=== PATIENT | female | born 1995 | race African-American/Black ===

== ENCOUNTER 2017-06-07 15:43 | Outpatient (CLI) | payer MEDICAID ==
[2017-06-07 16:32] LABS: APPEARANCE,URINE SLIGHTLY-CLOUDY; BILIRUBIN,URINE NEGATIVE (NEGATIVE); GLUCOSE, URINE NEGATIVE (NEGATIVE); KETONES,URINE NEGATIVE (NEGATIVE); LEUKOCYTE ESTERASE,URINE TRACE (NEGATIVE); NITRITE,URINE NEGATIVE (NEGATIVE); PROTEIN,URINE 30 mg/dL (NEGATIVE); URINE SPECIFIC GRAVITY 1.016
[2017-06-07 16:32] LABS: AMNISURE (ROM) NEGATIVE (NEGATIVE)
[2017-06-07] MEDS ORDERED: RINGERS SOLUTION,LACTATED 1,000 ML IV PRN (16:35)
[2017-06-07 16:47] LABS: URINE BARBITURATES SCREEN NEGATIVE; URINE METHADONE SCREEN NEGATIVE; URINE OPIATES LOW NEGATIVE; URINE PHENCYCLIDINE SCREEN NEGATIVE
[2017-06-07 17:07] LABS: APPEARANCE,URINE SLIGHTLY-CLOUDY; BILIRUBIN,URINE NEGATIVE (NEGATIVE); GLUCOSE, URINE NEGATIVE (NEGATIVE); KETONES,URINE NEGATIVE (NEGATIVE); LEUKOCYTE ESTERASE,URINE TRACE (NEGATIVE); NITRITE,URINE NEGATIVE (NEGATIVE); URINE SPECIFIC GRAVITY 1.016
[2017-06-07 17:12] LABS: ABSOLUTE EOSINOPHILS # (AUTO) 0.1 10^3/uL (0.0-0.6); ABSOLUTE LYMPHOCYTES (AUTO) 1.4 10^3/uL (0.5-4.7); ABSOLUTE MONOCYTES (AUTO) 0.9 10^3/uL (0.1-1.4); ABSOLUTE NEUT (AUTO) 6.5 10^3/uL (1.7-8.2); BASOPHILS % (AUTO) 0.2 % (0-2); EOSINOPHILS % (AUTO) 0.6 % (0-6); HEMATOCRIT 36.3 % (36.0-47.0); HEMOGLOBIN 12.3 g/dL (12.0-15.5); HGB HCT DIFFERENCE 0.6; MEAN CORPUSCULAR HEMOGLOBIN 27.1 pg (27.0-33.4); MEAN CORPUSCULAR VOLUME 80 fl (80-97); MONOCYTES % (AUTO) 10.2 % (3-13); RED BLOOD COUNT 4.55 10^6/uL (3.72-5.28); RED CELL DISTRIBUTION WIDTH 14.6 % (11.5-14.0)
[2017-06-07 17:15] LABS: URINE CREATININE 202.2 mg/dL (16-327); URINE PROTEIN 5.7 mg/dL (<12)
[2017-06-07 17:20] LABS: PROTEIN,URINE 30 mg/dL (NEGATIVE)
[2017-06-07 17:28] LABS: ALANINE AMINOTRANSFERASE 28 U/L (9-52); ALBUMIN 3.4 g/dL (3.5-5.0); ALKALINE PHOSPHATASE 184 U/L (38-126); ANION GAP 10 (5-19); ASPARTATE AMINO TRANSFERASE 14 U/L (14-36); BILIRUBIN,DIRECT 0.1 mg/dL (0.0-0.4); BILIRUBIN,TOTAL 0.3 mg/dL (0.2-1.3); BLOOD UREA NITROGEN 6 mg/dL (7-20); CARBON DIOXIDE 23 mmol/L (22-30); CHLORIDE 106 mmol/L (98-107); CREATININE RESULT 0.61 mg/dL (0.52-1.25); GLUCOSE 78 mg/dL (75-110); LDH 406 U/L (313-618); SODIUM 139.2 mmol/L (137-145); TOTAL PROTEIN 6.2 g/dL (6.3-8.2); URIC ACID 4.8 mg/dL (2.5-6.2)
[2017-06-07] MEDS ORDERED: HYDROXYZINE PAMOATE 50 MG CAPSULE PO ONE (18:03)
[2017-06-07] MEDS ORDERED: HYDROXYZINE PAMOATE 50 MG CAPSULE ONE (18:07)
--- NOTE | 2017-06-07 18:24 | Non Stress Test Report ---
Non Stress Test Datetime Report Generated by CPN: 06/07/2017 18:23 DEMOGRAPHIC EGA NST: 40.4 INDICATION Indication for Study: Ordered by Provider Indication for Study (NST) Other: lc MONITORING Monitor Explained: Monitor Explained; Test Explained; Patient Verbalized Understanding Time on Monitor: 06/07/2017 16:30 Time off Monitor: 06/07/2017 17:51 NST Duration: 81 NST INTERVENTIONS NST Interventions: PO Hydration; IV Fluids; Reposition Patient Physician Notified NST: Dr Greene BABY A: [id number] BABY A Movement : Present Contraction Frequency : 3-5 FHR Baseline : 135 Accelerations : 15X15 Decelerations : None Variability : Moderate 6-25bpm NST Review: Meets Criteria for Reactive NST NST Review and Verified By : ISABEL Baeza Results: Reactive NST REPORT Report Trigger: Send Report
== END 2017-06-07 18:18 | disposition home or self-care (01) ==
LOC: LC 15:43
PROVIDERS: ATTEND Obstetrics & Gynecology
DX: O48.0 Post-term pregnancy (principal); Z3A.40 40 weeks gestation of pregnancy
CPT/HCPCS: 59025; 94760; 96372; 84112; 36415; 83615; 84156; 84550; 82570; 85025; 81005; 80053; 81001; 80307; J3490

== ENCOUNTER 2017-06-07 22:24 | Inpatient (IN) | payer MEDICAID ==
[2017-06-07] MEDS ORDERED: OXYTOCIN 10 UNIT/ML VIAL ONE (22:31)
[2017-06-07] MEDS ORDERED: LIDOCAINE 1% INJ-PF (10 MG/ML) 30 ML SDV ONE ×2 (22:31→22:38)
[2017-06-07] MEDS ORDERED: MISOPROSTOL 0.2 MG TABLET ONE ×2 (22:31→22:38)
[2017-06-07] MEDS ORDERED: OXYTOCIN/NORMAL SALINE 0 UNIT/0 ML RTUINJ ONE (22:31)
[2017-06-07] MEDS ORDERED: PENICILLIN G-K 5 MILLION UNIT VIAL ONE (22:38)
[2017-06-07] MEDS ORDERED: OXYTOCIN/NORMAL SALINE 20 UNIT/1,000 ML RTUINJ ONE (22:38)
[2017-06-07] MEDS ORDERED: RINGERS SOLUTION,LACTATED 1,000 ML IV ONE (22:48)
[2017-06-07] MEDS ORDERED: RINGERS SOLUTION,LACTATED 1,000 ML IV PRN ×2 (22:48→23:59)
[2017-06-07] MEDS ORDERED: PENICILLIN G POTASSIUM 5,000,000 UNIT in DEXTROSE 5%-WATER 100 ML IV ONE (22:48)
[2017-06-07 22:59] LABS: ABSOLUTE EOSINOPHILS # (AUTO) 0.1 10^3/uL (0.0-0.6); ABSOLUTE LYMPHOCYTES (AUTO) 1.8 10^3/uL (0.5-4.7); ABSOLUTE MONOCYTES (AUTO) 0.8 10^3/uL (0.1-1.4); ABSOLUTE NEUT (AUTO) 7.4 10^3/uL (1.7-8.2); BASOPHILS % (AUTO) 0.2 % (0-2); EOSINOPHILS % (AUTO) 0.6 % (0-6); HEMATOCRIT 38.5 % (36.0-47.0); HGB HCT DIFFERENCE 0.5; LYMPHOCYTES % (AUTO) 18.1 % (13-45); MEAN CORPUSCULAR HGB CONC 33.9 g/dL (32.0-36.0); MEAN CORPUSCULAR VOLUME 80 fl (80-97); MONOCYTES % (AUTO) 8.1 % (3-13); RED BLOOD COUNT 4.82 10^6/uL (3.72-5.28); RED CELL DISTRIBUTION WIDTH 14.9 % (11.5-14.0); WHITE BLOOD COUNT 10.2 10^3/uL (4.0-10.5)
[2017-06-07] MEDS ORDERED: PENICILLIN G-K 5 MILLION UNIT VIAL IV PRN (23:18)
[2017-06-07] MEDS ORDERED: CEFAZOLIN 2 GM/D5W RTU 2 GM/50 ML RTUPB IV ONE (23:57)
[2017-06-07] MEDS ORDERED: CITRIC ACID/SODIUM CITRATE ORAL SOLN 15 ML UDCUP ONE (23:57)
[2017-06-07] MEDS ORDERED: OXYTOCIN/NORMAL SALINE 20 UNIT/1,000 ML RTUINJ IV PRN (23:59)
[2017-06-07] MEDS ORDERED: DIPH/PERTUSS(ACELL)/TETANUS VAC/PF 0.5 ML SYR (>=10YO) IM PRN (23:59)
[2017-06-07] MEDS ORDERED: OXYCODONE-ACETAMINOPHEN 5-325 MG TABLET PO PRN ×2 (23:59)
[2017-06-07] MEDS ORDERED: ACETAMINOPHEN 325 MG TABLET PO PRN (23:59)
[2017-06-07] MEDS ORDERED: SIMETHICONE 80 MG TAB.CHEW PO PRN (23:59)
[2017-06-07] MEDS ORDERED: PROMETHAZINE HCL INJ 25 MG/1 ML VIAL IV PRN (23:59)
[2017-06-07] MEDS ORDERED: MEASLES,MUMPS&RUBELLA VACC/PF 0.5 ML VIAL SUBCUT PRN (23:59)
[2017-06-08] MEDS ORDERED: IBUPROFEN 800 MG TABLET PO SCH
[2017-06-08] MEDS ORDERED: EPHEDRINE SULFATE INJ 50 MG/1 ML AMPULE ONE (00:14)
[2017-06-08] MEDS ORDERED: OXYTOCIN 10 UNIT/ML VIAL ONE (00:14)
[2017-06-08] MEDS ORDERED: OXYTOCIN/NORMAL SALINE 0 UNIT/0 ML RTUINJ ONE (00:14)
[2017-06-08] MEDS ORDERED: FENTANYL CITRATE INJ/PF 100 MCG/2 ML AMPUL ONE ×2 (00:14→02:32)
[2017-06-08] MEDS ORDERED: MIDAZOLAM 2 MG/2 ML INJ ONE (00:15)
[2017-06-08] MEDS ORDERED: PROMETHAZINE HCL INJ 25 MG/1 ML VIAL IV PRN ×2 (00:47)
[2017-06-08] MEDS ORDERED: FENTANYL CITRATE INJ/PF 100 MCG/2 ML AMPUL IV PRN ×3 (00:47)
[2017-06-08] MEDS ORDERED: MORPHINE SULFATE 10 MG/ML INJ IV PRN (00:47)
[2017-06-08] MEDS ORDERED: DIPHENHYDRAMINE HCL 50 MG/ML VIAL IV PRN (00:47)
[2017-06-08] MEDS ORDERED: ONDANSETRON HCL INJ/PF 4 MG/2 ML SDV IV PRN (00:47)
[2017-06-08] MEDS ORDERED: MEPERIDINE HCL/PF INJ 25 MG/1 ML DISP.SYRIN IV PRN (00:47)
--- NOTE | 2017-06-08 01:17 | Operative Report ---
Operative Report DATE OF SURGERY: 06/08/17 PREOPERATIVE DIAGNOSIS: Nonreassuring tracing multiple decelerations moderate meconium direct OP presentation with arrest of descent POSTOPERATIVE DIAGNOSIS: Same OPERATION: Primary via low transverse uterine incision and bilateral tubal ligation with Filshie clips SURGEON: SADAF HAYWOOD ANESTHESIA: Spinal TISSUE REMOVED OR ALTERED: Placenta COMPLICATIONS: None ESTIMATED BLOOD LOSS: 250 cc INTRAOPERATIVE FINDINGS: Viable male Apgars 7 and 9 moderate meconium directly OP PROCEDURE: Patient was taken to the OR and placed in supine position after her spinal anesthesia. She is prepared and draped in sterile fashion. Dodge was placed for drainage of the bladder. Low transverse incision was made and carried down the level of the fascia. The fascial incision was made with knife and extended bilaterally with curved Liang scissors. The fascia was off the rectus muscles using sharp and blunt dissection. The rectus muscles are in the midline. The peritoneum was entered without incident. Bladder blade was placed in uterine segment was identified. A low transverse incision was made creating a bladder flap. Bladder blade was placed low transverse uterine incision was made with the csafe knife and extended with fingertips. The baby was delivered with some fundal pressure. Mouth and nose were suctioned free. The cord is doubly clamped and cut. Baby is passed off to the invoice control clerk in attendance. The placenta was manually extracted with trailing membranes. The uterus was externalized wrapped in a moist lap sponge. Uterine contents wiped free. Uterus was closed with a running locking layer of 0 chromic suture using the second layer to imbricate the first completing a double layer closure of the uterus. The serosa was closed with a running 2-0 chromic stitch. Filshie clips were placed across each tube at the mid isthmic portion bilaterally. The pelvis was irrigated and suctioned free of fluid the uterus was replaced in the abdomen. The abdominal wall peritoneum was closed with running 2-0 chromic stitch. Fascia was closed with a running 0 Vicryl in 2 segments. Jazzmine's layer was brought together with 0 plain gut stitch and the skin was closed with running subcuticular 4-0 undyed Vicryl stitch. The wound was dressed mother and baby did well.
[2017-06-08] MEDS ORDERED: ACETAMINOPHEN 100 ML IV ONE (01:21)
--- NOTE | 2017-06-08 02:30 | Delivery Summary ---
Del Sum A-C Datetime Report Generated by CPN: 06/08/2017 02:30 DELIVERY PERSONNEL DELIVERY PERSONNEL: [id number] Delivery Doctor:: Gaurav Greene MD Anesthesiologist:: Yassine Bahena MD COLLECTION SYSTEMS CONSULTANT:: Ping Conde CRNA Labor and Delivery Nurse:: Hedy Delgado RN Neonatal Nurse Practitioner:: CARLINE Zaragoza Nursery Nurse:: Mayte Akers RN Auto Brake Technician/ROD DRAWER: [facility] Auto Brake Technician/ROD DRAWER: [facility] Additional Personnel: : Kris Kerns ROD DRAWER MATERNAL INFORMATION Delivery Anesthesia: Spinal Medications After Delivery: Pitocin Drip 20 Units/1000ml NSS Estimated Blood Loss (ml): 600 Maternal Complications: None LABOR SUMMARY EDC: 06/03/2017 00:00 No. Babies in Womb: 1 Attempted: No Labor Anesthesia: None LABOR INFORMATION Reason for Induction: Not Applicable Onset of Labor: 06/07/2017 22:31 Oxytocin: N/A Group B Beta Strep: Unknown Antibiotics # of Doses: 1 Antibiotics Time of Last Dose: 2240 Name of Antibiotic Given: penicillin Steroids Given: None Reason Steroids Not Administered: Not Applicable MEMBRANES Membranes Rupture Method: Spontaneous Rupture of Membranes: 06/07/2017 22:31 Length of Rupture (hr): 2.13 Amniotic Fluid Color: Moderate Meconium Amniotic Fluid Amount: Moderate Amniotic Fluid Odor: Normal STAGES OF LABOR Stage 3 hr: 0 Stage 3 min: 0 Total Time in Labor hr: 2 Total Time in Labor min: 8 VAGINAL DELIVERY Episiotomy: None Laceration #1: None Laceration Extension #1: N/A Laceration Repair: Not Applicable Sponge Count Correct: Yes Sharps Count Correct: Yes CSECTION DELIVERY Primary Indication: Nonreassuring Status Secondary Indication: N/A CSection Urgency: Emergency CSection Incidence: Primary Labor: Labor Elective: Nonelective CSection Incision: Lower Uterine Transverse BABY A INFORMATION Delivery Date/Time: 06/08/2017 00:39 Method of Delivery: Born in Route : No : N/A Forceps: N/A Vacuum Extraction: N/A Shoulder Dystocia : No PRESENTATION/POSITION BABY A Presentation: Cephalic Cephalic Presentation: Vertex Vertex Position: OP Breech Presentation: N/A PLACENTA INFORMATION BABY A Placenta Delivery Time : 06/08/2017 00:39 Placenta Method of Delivery: Spontaneous Placenta Status: Delivered SCORES BABY A Heart Rate 1 min: >100 bpm Resp Effort 1 min: Good Cry Reflex Irritability 1 min: Grimace Muscle Tone 1 min: Some Flexion of Extremities Color 1 min: Body [place], Extremities Blue SCORE 1 MIN: 7 Heart Rate 5 min: >100 bpm Resp Effort 5 min: Good Cry Reflex Irritability 5 min: Cough or Sneeze or Pulls Away Muscle Tone 5 min: Active Motion Color 5 min: Body [place], Extremities Blue SCORE 5 MIN: 9 INFANT INFORMATION BABY A Gestational Age at Delivery: 40.5 Gestational Status: Full Term- 39- 40.6 Weeks Outcome : Liveborn Condition : Stable Infant Sex: Male WEIGHT/LENGTH BABY A Infant Birthweight (gm): 3775 Weight (lb): 8 Weight (oz): 5 Length (in): 19.75 Infant Length (cm): 50.17 CORD INFORMATION BABY A No. Cord Vessels: 3 Nuchal Cord : N/A Cord Blood Taken: Yes-For Storage (Mom's Blood type +) Infant Suction: Mouth; Nose ASSESSMENT BABY A Transferred To: Nursery BABY B INFORMATION : N/A
[2017-06-08] MEDS ORDERED: PENICILLIN G POTASSIUM 2,500,000 UNIT in DEXTROSE 5%-WATER 50 ML IV SCH (02:49)
--- NOTE | 2017-06-08 03:26 | Admission Physical ---
Datetime Report Generated by CPN: 06/08/2017 03:25 CURRENT ADMISSION Chief Complaint: Uterine Contractions Indication for Induction: Not Applicable Indication for Induction: Term, Intrauterine ; Active Labor Admit Plan: Admit to Unit; Initiate Labor Protocol ALLERGIES Medication Allergies: No Medication Allergies: No Known Allergies (06/07/2017) Latex: No Latex Allergies Food Allergies: none Environmental Allergies: none OBSTETRICAL HISTORY EDC: 06/03/2017 00:00 : 2 Para: 1 Term: 1 : 0 SAB: 0 IAB: 0 Ectopic: 0 Livin Cesareans: 0 VBACs: 0 Multiple Births: 0 Gestational Diabetes: Yes Rh Sensitization: No Incompetent Cervix: No JERI: No Infertility: No ART Treatment: No Uterine Anomaly: No IUGR: No Hx Previous C/S: No Macrosomia: Unknown Hx Loss/Stillborn: No PIH: No Hx : No Placenta Previa/Abruption: No Depression/PP Depression: No PTL/PROM: No Post Hemorrhage: No Current Procedures: Ultrasound; NST Obstetrical History Comments: G1- 2014 term baby girl G2- current , GDM SEE RECORDS Alcohol: No Marijuana : No Cocaine: No Other Illicit Drugs: No Cigarettes: Former Smoker. [id number] Cigarette Comments: quit when pt found out she was MEDICAL HISTORY Diabetes Type: Gestational Diabetes Blood Transfusion: No Pulmonary Disease (Asthma, TB): No Breast Disease: No Hypertension: No Litigation Legal Secretary Surgery: No Heart Disease: No Hosp/Surgery: Yes Autoimmune Disorder: No Anesthetic Complications: No Kidney Disease: No Abnormal Pap Smear: No Neuro/Epilepsy: No Psychiatric Disorders: No Other Medical Diseases: No Hepatitis/Liver Disease: No Significant Family History: No Varicosities/Phlebitis: No Trauma/Violence : No Thyroid Dysfunction: No Medical History Comments: GDM this INFECTIOUS HISTORY Gonorrhea: No Genital Herpes: No Chlamydia: No Tuberculosis: No Syphilis: No Hepatitis: No HIV/AIDS Exposure: No Rash or Viral Illness: No HPV: No PHYSICAL EXAM General: Normal HEENT: Normal Neurologic: Normal Thyroid: Normal Heart: Normal Lungs: Normal Breast: Deferred Back: Normal Abdomen: Normal Genitourinary Exam: Normal Extremities: Normal DTRs: Normal Pelvic Type: Adequate VAGINAL EXAM Dilatation: 9 Effacement: 100 Station: 0 MEMBRANES Pooling: Positive Membranes: Ruptured Amniotic Fluid Color: Meconium, Heavy FETUS A EGA: 40.4 FHR- Baseline: 150 Variability: Minimal - Undetectable to <=5bpm Accelerations: 15X15 Decelerations: Variable FHR Category: Category II Presentation: Vertex Admit Comment: EFW 9lbs and meconium. Now appears to have stopped at 9cm PLANS FOR LABOR AND DELIVERY Labor and Delivery: None Pain Management: Epidural Feeding Preference: Both Benefit of Breast Feed Discussed: Yes Circumcision: Yes INFORMED CONSENT Signature: with User ID: [email or web address]
[2017-06-08] MEDS: KETOROLAC TROMETHAMINE INJ/PF 30 MG/1 ML SDV IV SCH ×3 (04:29→17:02)
[2017-06-08] MEDS: HYDROMORPHONE HCL INJ/PF 2 MG/ML AMPULE IV PRN ×2 (04:29→13:36)
[2017-06-08 07:02] LABS: HEMOGLOBIN 12.1 g/dL (12.0-15.5); HGB HCT DIFFERENCE 0.3; MEAN CORPUSCULAR HEMOGLOBIN 26.7 pg (27.0-33.4); MEAN CORPUSCULAR HGB CONC 33.6 g/dL (32.0-36.0); MEAN CORPUSCULAR VOLUME 80 fl (80-97); RED BLOOD COUNT 4.52 10^6/uL (3.72-5.28); RED CELL DISTRIBUTION WIDTH 14.8 % (11.5-14.0)
[2017-06-08] MEDS ORDERED: KETOROLAC TROMETHAMINE 60 MG/2 ML SDV ONE (07:51)
[2017-06-08] MEDS ORDERED: METOCLOPRAMIDE HCL INJ/PF 10 MG/2 ML SDV ONE (07:51)
[2017-06-08] MEDS ORDERED: DEXAMETHASONE SOD PHOSPHATE INJ 4 MG/1 ML VIAL ONE (07:51)
[2017-06-08] MEDS ORDERED: PHENYLEPHRINE HCL INJ/PF 10 MG/1 ML SDV ONE (07:51)
[2017-06-08] MEDS ORDERED: ONDANSETRON HCL INJ/PF 4 MG/2 ML SDV ONE (07:51)
[2017-06-08] MEDS: DOCUSATE SODIUM 100 MG CAPSULE PO SCH ×2 (09:06→17:02)
[2017-06-08] MEDS: PRENATAL VITAMIN W DHA CAPSULE PO SCH (09:06)
--- NOTE | 2017-06-08 11:39 | PDOC PROGRESS REPORT ---
Subjective-OB Subjective: Post Delivery Day:1 22 year old G2 now P2 s/p primary 10hrs pp. Passing gas, andersen still in placed for 2 more hours, output very reassuring, pt. reports tolerable pain at this time. Denies any needs at this time Physical Exam (OB) Vital Signs: Temp Pulse Resp BP Pulse Ox 98.1 F 76 18 119/72 98 06/08/17 08:00 06/08/17 08:00 06/08/17 08:00 06/08/17 08:00 06/08/17 08:00 Intake & Output 06/07/17 06/08/17 06/09/17 06:59 06:59 06:59 Output Total 1700 1000 Balance -1700 -1000 - General General Appearance: Appears well In distress: None - Dressing Removed: No - honeycomb Incision: Dressing - Lochia Lochia Amount: Scant < 10 ml Lochia Color: Rubra/Red - Abdomen Description: Tender, Soft Hernia Present: No Fundal Description: Firm, Midline Fundal Height: u/u - u/2 - Respiratory Respiratory Status: No respiratory distress - Extremities Upper extremity: Normal inspection Lower extremities: Normal inspection - Neurological Cognition: Normal Orientation: AAOx4 - Psychological Associated symptoms: Normal affect, Normal mood Objective-Diagnostic Laboratory: 06/08/17 06:53 06/07/17 06/07/17 06/08/17 22:45 22:45 06:53 WBC 10.2 16.0 H RBC 4.82 4.52 Hgb 13.0 12.1 Hct 38.5 36.0 MCV 80 80 MCH 27.0 26.7 L MCHC 33.9 33.6 RDW 14.9 H 14.8 H Plt Count 151 125 L Seg Neutrophils % 73.0 Lymphocytes % 18.1 Monocytes % 8.1 Eosinophils % 0.6 Basophils % 0.2 Absolute Neutrophils 7.4 Absolute Lymphocytes 1.8 Absolute Monocytes 0.8 Absolute Eosinophils 0.1 Absolute Basophils 0.0 Blood Type B POSITIVE Antibody Screen NEGATIVE Assessment and Plan(PN) - Assessment and Plan (1) Status post primary low transverse section Is this a current diagnosis for this admission?: Yes Plan: routine pp care (2) Gestational diabetes mellitus (GDM) affecting second Is this a current diagnosis for this admission?: Yes Plan: routine pp care, evaluate fasting blood sugar at pp visit - Time Spent with Patient Time with patient: 15-25 minutes Medications reviewed and adjusted accordingly: Yes - Disposition Anticipated Discharge: Home Within: within 48 hours
[2017-06-08] MEDS ORDERED: OXYCODONE-ACETAMINOPHEN 5-325 MG TABLET PO PRN (19:51)
[2017-06-08] MEDS: OXYCODONE-ACETAMINOPHEN 5-325 MG TABLET PO PRN (20:08)
[2017-06-09] MEDS: KETOROLAC TROMETHAMINE INJ/PF 30 MG/1 ML SDV IV SCH (01:57)
[2017-06-09] MEDS: OXYCODONE-ACETAMINOPHEN 5-325 MG TABLET PO PRN ×3 (01:57→20:12)
[2017-06-09] MEDS: DOCUSATE SODIUM 100 MG CAPSULE PO SCH ×2 (09:03→18:13)
[2017-06-09] MEDS: PRENATAL VITAMIN W DHA CAPSULE PO SCH (09:03)
[2017-06-09] MEDS: IBUPROFEN 800 MG TABLET PO SCH ×3 (09:03→20:13)
--- NOTE | 2017-06-09 09:54 | PDOC PROGRESS REPORT ---
Subjective Progress Note for:: 06/09/17 Subjective:: pt without complaints passing gas and eating well Reason For Visit: Physical Exam - Physical Exam Vital Signs: Temp Pulse Resp BP Pulse Ox 98.3 F 72 18 122/76 98 06/09/17 04:45 06/09/17 04:45 06/09/17 04:45 06/09/17 04:45 06/09/17 04:45 Intake & Output 06/08/17 06/09/17 06/10/17 06:59 06:59 06:59 Intake Total 2440 Output Total 1700 2750 Balance -1700 -310 Weight 104.6 kg - Obstetrical Exam Vagina: normal Fundal Height: u/u - u/2 Tender: No Adhexa: normal Result Laboratory Results: 06/08/17 06:53
[2017-06-10 00:36] LABS: HEPATITIS C QUANTITATION HCV Not Detected IU/mL (.)
[2017-06-10] MEDS: IBUPROFEN 800 MG TABLET PO SCH ×2 (03:04→09:05)
[2017-06-10] MEDS: DOCUSATE SODIUM 100 MG CAPSULE PO SCH (09:05)
[2017-06-10] MEDS: PRENATAL VITAMIN W DHA CAPSULE PO SCH (09:05)
--- NOTE | 2017-06-10 11:51 | PDOC DISCHARGE SUMMARY ---
Final Diagnosis Discharge Date: 06/10/17 - Final Diagnosis (1) Gestational diabetes mellitus (GDM) affecting second Is this a current diagnosis for this admission?: Yes (2) Status post primary low transverse section Is this a current diagnosis for this admission?: Yes Discharge Data - Discharge Medication Home Medications: Iron 18 mg PO DAILY 06/07/17 Vit/Iron Fum/Folic AC [ Tablet] 1 each PO DAILY 06/07/17 Reason(s) for Admission: Onset of Labor Procedures: NST, Management of Obstetric Complications Intrapartum Procedure(s): : Low Cervical, Transverse - Diagnosis Test Laboratory: Temp Pulse Resp BP Pulse Ox 98.1 F 76 17 116/76 99 06/10/17 07:49 06/10/17 07:49 06/10/17 07:49 06/10/17 07:49 06/10/17 07:49 06/07/17 06/08/17 22:45 06:53 RBC 4.82 4.52 Hgb 13.0 12.1 Hct 38.5 36.0 - Discharge information/Instructions Discharge Activity: Balance Activity w/Rest, No Lifting Over 10 Pounds, No Lifting/Push/Pulling, Pelvic Rest, No tub bath Discharge Diet: Regular Disposition: HOME, SELF-CARE Follow up with: [facility] in: 4, Weeks
[2017-06-10 12:34] VITALS: BP 119/72
[2017-06-10] MEDS: OXYCODONE-ACETAMINOPHEN 5-325 MG TABLET PO PRN (13:10)
== END 2017-06-10 13:42 | disposition home or self-care (01) | DRG 766 ==
LOC: LC 22:24 → LR 22:35 → 2S 06-08 03:24
PROVIDERS: ADMIT Obstetrics & Gynecology; ATTEND Obstetrics & Gynecology
PROC: 10D00Z1 Extraction of Products of Conception, Low, Open Approach (ICD-10-PCS; principal; 2017-06-08)
PROC: 0UL70CZ Occlusion of Bilateral Fallopian Tubes with Extraluminal Device, Open Approach (ICD-10-PCS; 2017-06-08)
DX: O24.429 Gestational diabetes mellitus in childbirth, unspecified control (principal); O26.03 Excessive weight gain in pregnancy, third trimester; O77.0 Labor and delivery complicated by meconium in amniotic fluid; F50.89 Other specified eating disorder; O76 Abnormality in fetal heart rate and rhythm complicating labor and delivery; O32.8XX0 Maternal care for other malpresentation of fetus, not applicable or unspecified; O62.1 Secondary uterine inertia; Z3A.40 40 weeks gestation of pregnancy; Z37.0 Single live birth; Z87.891 Personal history of nicotine dependence; Z30.2 Encounter for sterilization
CPT/HCPCS: 1961; 36415; 85025; 85027; 86592; 86850; 86900; 86901; 87522; 94799; J0131; J0690; J1100; J1170; J1885; J2250; J2370; J2405; J2540; J2590; J2765; J3010; J3490

== ENCOUNTER 2018-02-01 06:25 | Emergency (ER) | payer MEDICAID ==
[2018-02-01] MEDS ORDERED: KETOROLAC TROMETHAMINE INJ/PF 30 MG/1 ML SDV IM ONE (07:16)
--- NOTE | 2018-02-01 07:21 | ER Document Report ---
HPI - HPI Pain Level: 3 Notes: Patient is a 22-year-old female no significant past medical history presents to the ED complaining of left mid back pain 3 days without known injury. Patient states the pain is worse with twisting and bending movements. Pain does not radiate. She has tried some Tylenol with minimal relief. She denies any drug allergies. Patient does admit to smoking but denies IV drug use. She has not had any history of spinal abscess. She is eating and drinking without any difficulties. She is urinating normally and having normal bowel movements. Denies any headache, fever, neck pain, URI, sore throat, chest pain, palpitations, syncope, cough, shortness of breath, wheeze, dyspnea, abdominal pain, nausea/vomiting/diarrhea, urinary retention, dysuria, hematuria, loss of control of bowel or bladder, numbness/tingling, saddle anesthesia, muscle paralysis/weakness, or rash. LMP January 20-January 25 - ROS Systems Reviewed and Negative: Yes All other systems reviewed and negative - CONSTITUTIONAL Constitutional: DENIES: Fever, Chills - NEURO Neurology: DENIES: Headache, Weakness, Vision blurred, Dizzinesss / Vertigo - URINARY Urinary: REPORTS: Dysuria. DENIES: Urgency, Frequency - REPRODUCTIVE LMP: 01-20-18 Past Medical History - Social History Smoking Status: Current Every Day Smoker Chew tobacco use (# tins/day): No Frequency of alcohol use: None Drug Abuse: None Family History: Reviewed & Not Pertinent Patient has suicidal ideation: No Patient has homicidal ideation: No Renal/ Medical History: Denies: Hx Peritoneal Dialysis Vertical Provider Document - CONSTITUTIONAL Agree With Documented VS: Yes Notes: PHYSICAL EXAMINATION: GENERAL: Well-appearing, well-nourished and in no acute distress. Pt sitting comfortably with knees tucked in and trunk flexed on the bed while on her cell phone. LUNGS: Breath sounds clear to auscultation bilaterally and equal. No wheezes rales or rhonchi. HEART: Regular rate and rhythm without murmurs, rubs, gallops. ABDOMEN: Soft, nontender, nondistended abdomen. No guarding, no rebound. No masses appreciated. Normal bowel sounds present. No CVA tenderness bilaterally. No pulsatile mass Musculoskeletal: LE's b/l: FROM to passive/active. Strength 5+/5. No deficits noted. No bony tenderness of extremities. Back: FROM to passive/active. Strength 5+/5. No vertebral point tenderness, stepoffs, or deformities. No other bony tenderness, erythema, swelling, or ecchymosis. SLR negative b/l. + mild tenderness to the left T-paraspinal mm, correlates with pain described. Mild spasming. No SI jt tenderness. No foot drop Extremities: No cyanosis, clubbing, or edema b/l. Peripheral pulses 2+. Capillary refill less than 2 seconds. NEUROLOGICAL: Normal speech, normal gait. Normal sensory, motor exams. Reflexes 2+ b/l. PSYCH: Normal mood, normal affect. SKIN: Warm, Dry, normal turgor, no rashes or lesions noted. - INFECTION CONTROL TRAVEL OUTSIDE OF THE [place] IN LAST 30 DAYS: No Course - Re-evaluation Re-evalutation: 02/01/18 07:19 Patient is an afebrile, well-hydrated, 22-year-old female who presents to the ED with left sided thoracic back pain, suspect sprain/strain. Vitals are acceptable. PE is otherwise unremarkable for any focal neurological deficits. Patient was given Toradol. She has no significant tachycardia, tachypnea, or hypoxia. She is nontoxic-appearing and is tolerating p.o. without difficulties. There are no signs of infection. No other red flag symptoms noted. No other labs or imaging warranted at this time based on H&P. Low suspicion for any meningitis, fracture, expanding/ruptured AAA, cauda equina syndrome, epidural mass lesion/abscess, herniated disc causing severe spinal stenosis, or other systemic infection at this time. Patient is aware that this condition can change from initial presentation and that she needs monitor symptoms closely for any acute changes. I will send him home with a prescription for baclofen and naproxen. Conservative measures otherwise for symptoms. Recheck with your PCM in 3-5 days. Consider consult with orthopedic/ physical therapy. Return to the ED with any worsening/concerning symptoms otherwise as reviewed discharge. Patient is in agreement. - Vital Signs Vital signs: Temp Pulse Resp BP Pulse Ox 98.6 F 64 16 112/72 97 02/01/18 06:31 02/01/18 06:31 02/01/18 06:31 02/01/18 06:31 02/01/18 06:31 Discharge - Discharge Clinical Impression: Thoracic back pain Qualifiers: Chronicity: acute Back pain laterality: left Qualified Code(s): M54.6 - Pain in thoracic spine Condition: Stable Disposition: HOME, SELF-CARE Instructions: Ice Packs ([facility]), Warm Packs ([facility]), Stretching Exercises for the Back ([facility]) Additional Instructions: Rest, Ice Tylenol/ibuprofen as needed Light stretches daily Strength exercises as able Moist heat and massage may help F/u with your PCP in 3-5 days for a recheck Consider consult(s) with Orthopedics/physical therapy for ongoing/worsening symptoms Return to the ED with any worsening symptoms and/or development of fever, headache, chest pain, palpitations, syncope, shortness of breath, trouble breathing, abdominal pain, n/v/d, blood in stool/urine, loss of control of bowel /bladder, urinary retention, muscle weakness/paralysis, saddle anesthesia, numbness/tingling, or other worsening symptoms that are concerning to you. Prescriptions: Baclofen [Baclofen 10 mg Tablet] 5 - 10 mg PO BID PRN #10 tablet PRN Reason: Naproxen 500 mg PO BID PRN #30 tablet PRN Reason: Forms: Smoking Cessation Education Referrals: ARCADIO RONQUILLO MD [Primary Care Provider] - Follow up as needed [facility] [Provider Group] - Follow up as needed
[2018-02-01 07:43] VITALS: BP 112/78
== END 2018-02-01 07:44 | disposition home or self-care (01) ==
LOC: ER 06:25
DX: M54.6 Pain in thoracic spine (principal); R30.0 Dysuria; F17.200 Nicotine dependence, unspecified, uncomplicated
CPT/HCPCS: 99283; 96372; J1885

== ENCOUNTER 2018-05-16 09:11 | Emergency (ER) | payer MEDICAID ==
[2018-05-16] MEDS ORDERED: CYCLOBENZAPRINE HCL 10 MG TABLET PO ONE (10:05)
[2018-05-16] MEDS ORDERED: KETOROLAC TROMETHAMINE 60 MG/2 ML SDV IM ONE (10:05)
--- NOTE | 2018-05-16 10:11 | ER Document Report ---
ED General - General Chief Complaint: Headache Stated Complaint: BACK PAIN Time Seen by Provider: 05/16/18 09:43 TRAVEL OUTSIDE OF THE [place] IN LAST 30 DAYS: No - HPI Notes: Patient is a 23-year-old female that presents to the emergency department for chief complaint of headache and back pain. Patient reports 2-3 days of back pain and headaches. She states the headache is located over her right mandaen and last 2-3 seconds at a time. It is sharp with no radiation. The headache has no associated photophobia phonophobia or visual changes. After 2-3 seconds her headache completely resolved. Currently she is not having this headache. She states these episodes occur about once an hour over the last few days. She denies history of migraine headaches in the past. Patient also reports a low back pain that is sharp and achy. The pain is worse when she bends forward or moves. She has tried Tylenol, Advil, and Aleve at home with minimal relief of symptoms. She denies trauma or injury. She does lift 40-50 pound boxes at work and states this does aggravate the pain. She denies any bowel or bladder incontinence, saddle anesthesia, lower extremity weakness, fevers and chills. Past Medical History: Negative Past Surgical History: Negative Social History: Daily tobacco. Denies drugs and alcohol Family History: Reviewed and noncontributory for presenting illness Allergies: Reviewed, see documented allergy list. REVIEW OF SYSTEMS: CONSTITUTIONAL : No fever No chills No diaphoresis No recent illness EENT: No vision changes No congestion No sore throat CARDIOVASCULAR: No chest pain No palpitations RESPIRATORY: No shortness of breath No cough No difficulty breathing GASTROINTESTINAL: No abdominal pain No nausea No vomiting No diarrhea GENITOURINARY: No dysuria No hematuria No difficulty urinating MUSCULOSKELETAL: back pain No leg pain No arm pain SKIN: No rashes No lesions LYMPHATIC: No swollen, enlarged glands. NEUROLOGICAL: No lightheadedness headache No weakness No paresthesias PSYCHIATRIC: No anxiety No depression PHYSICAL EXAMINATION: Vital signs reviewed, nursing noted reviewed. GENERAL: Well-appearing, well-nourished and in no acute distress. HEAD: Atraumatic, normocephalic. EYES: Eyes appear normal, extraocular movements intact, sclera anicteric, conjunctiva are normal. ENT: nares patent, oropharynx clear without exudates. Moist mucous membranes. NECK: Normal range of motion, supple without lymphadenopathy LUNGS: Breath sounds clear to auscultation bilaterally and equal. No wheezes rales or rhonchi. HEART: Regular rate and rhythm without murmurs ABDOMEN: Soft, nontender, normoactive bowel sounds. No rebound, guarding, or rigidity. No masses appreciated. EXTREMITIES: Nontender, good range of motion, no pitting or edema. Back: Normal range of motion. Bilateral lumbar paraspinal tenderness. No midline step-off or spinal tenderness NEUROLOGICAL: No focal neurological deficits. Moves all extremities spontaneously Motor and sensory grossly intact on exam. PSYCH: Normal mood, normal affect. SKIN: Warm, Dry, normal turgor, no rashes or lesions noted on exposed skin - Related Data Allergies/Adverse Reactions: No Known Allergies Allergy (Verified 05/16/18 09:12) Past Medical History - Social History Smoking Status: Current Every Day Smoker Chew tobacco use (# tins/day): No Frequency of alcohol use: None Drug Abuse: None Family History: Reviewed & Not Pertinent Patient has suicidal ideation: No Patient has homicidal ideation: No Renal/ Medical History: Denies: Hx Peritoneal Dialysis Review of Systems - Review of Systems Notes: Dictated Physical Exam - Vital signs Vitals: Temp Pulse Resp BP Pulse Ox 98.4 F 63 18 106/63 100 05/16/18 09:14 05/16/18 09:14 05/16/18 09:14 05/16/18 09:14 05/16/18 09:14 - Notes Notes: Dictated Course - Re-evaluation Re-evalutation: 05/16/18 10:11 Vitals reviewed. Nursing notes reviewed. Given Toradol for pain. Patient is afebrile and nontoxic. I do not suspect meningitis, epidural abscess or transverse myelitis. She has no acute trauma or bony injury and spinal fracture not clinically suspected. Patient also has no focal neurologic deficits and cauda equina syndrome is not present. Patient will be started on anti-inflammatories and muscle relaxers for her muscle spasm. She was given 2 days off of work and educated on how to lift heavy objects with her legs and not her back. She was counseled on return precautions and verbalized understanding. She will be referred to primary care for follow-up. She is in agreement with this plan and stable at discharge. - Vital Signs Vital signs: Temp Pulse Resp BP Pulse Ox 98.4 F 63 18 106/63 100 05/16/18 09:14 05/16/18 09:14 05/16/18 09:14 05/16/18 09:14 05/16/18 09:14 Discharge - Discharge Clinical Impression: Back pain Qualifiers: Back pain location: low back pain Chronicity: acute Back pain laterality: bilateral Sciatica presence: without sciatica Qualified Code(s): M54.5 - Low back pain Headache Qualifiers: Headache type: unspecified Headache chronicity pattern: acute headache Intractability: not intractable Qualified Code(s): R51 - Headache Condition: Stable Disposition: HOME, SELF-CARE Instructions: Headache ([facility]), Low Back Pain ([facility]) Additional Instructions: Please return to the emergency department if you have any worsening, or concern of your symptoms. Please return to the emergency department if you develop chest pain, difficulty breathing, severe abdominal pain, or ongoing vomiting. Please follow-up with your primary care physician in 2-3 days and any other recommended physicians. If prescribed, take all medications as directed. If you have any questions or concerns do not hesitate to return the emergency department for evaluation. [] Prescriptions: Cyclobenzaprine HCl [Flexeril 10 mg Tablet] 10 mg PO TIDP PRN #15 tab PRN Reason: Naproxen 500 mg PO BID PRN #30 tablet PRN Reason: Pain Scale Of 1 Forms: Return to Work Referrals: [facility] [Provider Group] - Follow up in 3-5 days
[2018-05-16 10:12] VITALS: BP 111/74
== END 2018-05-16 10:17 | disposition home or self-care (01) ==
LOC: ER 09:11
DX: M54.5 Low back pain (principal); R51 Headache; F17.200 Nicotine dependence, unspecified, uncomplicated
CPT/HCPCS: 99283; 96372; J1885

== ENCOUNTER 2019-08-02 02:03 | Emergency (ER) | payer MEDICAID ==
[2019-08-02 02:18] VITALS: BP 111/76
== END 2019-08-02 04:24 | disposition left against medical advice (07) ==
LOC: ER 02:03
DX: Z53.21 Procedure and treatment not carried out due to patient leaving prior to being seen by health care provider (principal)

== ENCOUNTER 2019-12-29 12:10 | Emergency (ER) | payer MEDICAID ==
[2019-12-29 12:15] VITALS: BP 138/89
[2019-12-29] MEDS ORDERED: PENICILLIN V POTASSIUM 500 MG TABLET PO ONE (12:52)
[2019-12-29] MEDS ORDERED: LIDOCAINE 2% VISCOUS SOLN 15 ML UDCUP PO ONE (12:52)
[2019-12-29] MEDS ORDERED: IBUPROFEN 600 MG TABLET PO ONE (12:52)
--- NOTE | 2019-12-29 12:57 | ER Document Report ---
ED Oral Problem - General Chief Complaint: Toothache Stated Complaint: TOOTHACHE Time Seen by Provider: 12/29/19 12:47 Mode of Arrival: Ambulatory Notes: 24-year-old female presents to ED for dental pain to the right upper and lower jaw. She has cavities to the right upper and lower jaw. They have been hurting for couple days. She states she did take Tylenol this morning. She has no past medical history. She does smoke 1/2 pack a day denies use of alcohol or drugs. She is alert oriented respirations regular nonlabored speaking in full sentences. TRAVEL OUTSIDE OF THE [place] IN LAST 30 DAYS: No - HPI Patient complains to provider of: Toothache Onset: Other Quality of pain: Sharp - Upper weeks, Throbbing Severity: Moderate Pain Level: 4 Associated symptoms: Toothache Worsened by: Cold Relieved by: Nothing Similar symptoms previously: Yes Recently seen / treated by doctor/dentist: No - Related Data Allergies/Adverse Reactions: No Known Allergies Allergy (Verified 08/02/19 02:26) Past Medical History - General Information source: Patient - Social History Smoking Status: Current Every Day Smoker Cigarette use (# per day): Yes - One half pack a day Smoking Education Provided: Yes - 4 minutes Frequency of alcohol use: None Drug Abuse: None Lives with: Family Family History: Reviewed & Not Pertinent Patient has suicidal ideation: No Patient has homicidal ideation: No - Past Medical History Cardiac Medical History: Reports: None Pulmonary Medical History: Reports: None EENT Medical History: Reports: None Neurological Medical History: Reports: None Endocrine Medical History: Reports: None Renal/ Medical History: Reports: None Malignancy Medical History: Reports: None GI Medical History: Reports: None Musculoskeletal Medical History: Reports None Skin Medical History: Reports None Psychiatric Medical History: Reports: None Traumatic Medical History: Reports: None Infectious Medical History: Reports: None Surgical Hx: Negative Past Surgical History: Reports: None - Immunizations Immunizations up to date: Yes Hx Diphtheria, Pertussis, Tetanus Vaccination: Yes Review of Systems - Review of Systems Constitutional: No symptoms reported EENT: Mouth pain, Dental problem Cardiovascular: No symptoms reported Respiratory: No symptoms reported Gastrointestinal: No symptoms reported Genitourinary: No symptoms reported Female Genitourinary: No symptoms reported Musculoskeletal: No symptoms reported Skin: No symptoms reported Hematologic/Lymphatic: No symptoms reported Neurological/Psychological: No symptoms reported Physical Exam - Vital signs Vitals: Temp Pulse Resp BP Pulse Ox 98.1 F 85 20 138/89 H 100 12/29/19 12:14 12/29/19 12:14 12/29/19 12:14 12/29/19 12:14 12/29/19 12:14 Interpretation: Normal - General General appearance: Appears well, Alert - HEENT Head: Normocephalic, Atraumatic Eyes: Normal Pupils: PERRL Ears: Normal External canal: Normal Sinus: Normal Nasal: Normal Mouth/Lips: Caries - Right upper and lower jaw Mucous membranes: Normal Pharynx: Normal Neck: Normal - Respiratory Respiratory status: No respiratory distress Chest status: Nontender Breath sounds: Normal Chest palpation: Normal - Cardiovascular Rhythm: Regular Heart sounds: Normal auscultation Murmur: No - Abdominal Inspection: Normal Distension: No distension Bowel sounds: Normal Tenderness: Nontender Organomegaly: No organomegaly - Back Back: Normal, Nontender - Extremities General upper extremity: Normal inspection, Nontender, Normal color, Normal ROM, Normal temperature General lower extremity: Normal inspection, Nontender, Normal color, Normal ROM, Normal temperature, Normal weight bearing. No: Kiara's sign - Neurological Neuro grossly intact: Yes Cognition: Normal Orientation: AAOx4 Ricardo Coma Scale Eye Opening: Spontaneous Anderson Coma Scale Verbal: Oriented Anderson Coma Scale Motor: Obeys Commands Ricardo Coma Scale Total: 15 Speech: Normal Motor strength normal: LUE, RUE, LLE, RLE Sensory: Normal - Psychological Associated symptoms: Normal affect, Normal mood - Skin Skin Temperature: Warm Skin Moisture: Dry Skin Color: Normal Course - Re-evaluation Re-evalutation: 12/29/19 23:05 Patient was treated with penicillin, viscous lidocaine and anti-inflammatories for her dental pain. Patient was instructed to please follow-up with dentist to treat her dental pain. Patient was discharged home with prescription for penicillin. Patient verbalized understanding and agreement treatment plan patient was discharged home. - Vital Signs Vital signs: Temp Pulse Resp BP Pulse Ox 98.1 F 85 20 138/89 H 100 12/29/19 12:14 12/29/19 12:14 12/29/19 12:14 12/29/19 12:14 12/29/19 12:14 Discharge - Discharge Clinical Impression: Pain due to dental caries Condition: Stable Disposition: HOME, SELF-CARE Additional Instructions: TOOTHACHE: Your pain is due to dental decay. The tooth must be repaired in order for you to feel better. You will, therefore, be referred to a dentist. We do not have dentists on the staff at [facility]. Severe swelling or drainage around a tooth usually means a dental abscess. This also requires evaluation and treatment by the dentist, but antibiotics may be prescribed while awaiting dental treatment. You should be rechecked immediately if you develop major swelling of the face, increasing pain, a lump in the jaw or gums, headache, difficulty swallowing, or fever. PENICILLIN V K: You have been given a prescription for Penicillin VK. Your physician has determined that this is the best antibiotic for your condition. Pen VK can be taken with meals, however more of the antibiotic gets into the bloodstream if it's taken on an empty stomach. Penicillin usually has no side effects. However, allergy to penicillins is common. If you have had an allergic reaction to any drug of the penicillin family, you should never take any other penicillin. Notify your doctor at once if you develop hives, itching, swelling, faintness, or shortness of breath. Salt and soda solution gargle 1 quart of water 1 tablespoon of salt 1 teaspoon of baking soda Mixed 3 ingredients together and boil for 1 minute Placed in a covered quart jar Use 1/2 ounce of cold solution to gargle 3 times a day I have given you to the viscous lidocaine. Please place a small amount of this on your finger and apply it to the tooth that is bothering you every 4 hours. Please do not use it more often than every 4 hours or he can erode the skin on your gums and make it more painful. FOLLOW-UP CARE: You have been referred for follow-up care to the dentists listed below. Call the dentists office for an appointment as you were instructed or within the next two days. If you experience worsening or a significant change in your symptoms, notify the physician immediately or return to the Emergency Department at any time for re-evaluation. [facility] [address] [place] [address] [facility] [address] [facility] [email or web address] [address] [place] [address] Tuesday- 8:00am to 5:00 pm Will see patients from other [facility]. Charges based on income and family size and accepts Medicare, Medicaid, and Insurances Will pull molars [facility] [place] [phone] Hours of Operation 8:00 am - 4:30 pm weekdays The following dental offices accept Medicaid: [facility] [address] [place] Dr[address] Farris Dr. Colin Dr. Alvarez Jc Chinchilla, Shaila, and Bull oral surgery Dr. Ivy ([place]) Dr. Vickers ([place]) [facility] Drs. Prescott and Walt ([place]) Dr. Grajeda ([place]) [facility] Dr. Calhoun ([place]) Drs. Cloud and ([place]) Medicaid Care Line Prescriptions: Penicillin V Potassium [Penicillin Vk 500 mg Tablet] 500 mg PO BID #20 tablet Forms: Elevated Blood Pressure, Smoking Cessation Education
== END 2019-12-29 13:03 | disposition home or self-care (01) ==
LOC: ER 12:10
DX: K02.9 Dental caries, unspecified (principal); F17.210 Nicotine dependence, cigarettes, uncomplicated
CPT/HCPCS: 99406; 99282; J3490 ×3